=== PATIENT | male | born 1955 | race American Indian/Alaskan Native ===

== ENCOUNTER 2017-12-11 18:08 | Emergency (ER) | payer MEDICARE ==
[2017-12-11 19:23] LABS: Hematocrit 45.2 % (35.5-45.6); Hemoglobin 14.7 gm/dl (11.8-15.2); Mean Corpuscular HGB Conc 33 % (32-34); Mean Corpuscular Hemoglobin 29 pg (28-32); Mean Corpuscular Volume 88 fl (84-94); Platelet Count 216 K/mm3 (140-440); Red Blood Count 5.15 M/mm3 (3.65-5.03); Red Cell Distribution Width 13.9 % (13.2-15.2)
--- NOTE | 2017-12-11 19:32 | XRay Report ---
FINAL REPORT EXAM: XR CHEST ROUTINE 2V HISTORY: sob TECHNIQUE: Two view chest PA and lateral PRIORS: None. FINDINGS: Cardiac and mediastinal contours are unremarkable. No focal pulmonary infiltrate is identified. No pleural fluid collection seen. Pulmonary vasculature is unremarkable. IMPRESSION: Negative two-view chest
[2017-12-11 19:42] LABS: BUN/Creatinine Ratio 18; Blood Urea Nitrogen 16 mg/dL (9-20); Hemolysis Index 28
[2017-12-11 20:08] LABS: Bilirubin,Urine NEG (Negative); Blood,Urine NEG (Negative); Color,Urine Straw (Yellow); Hyaline Casts,Urine 1 /LPF; Mucus,Urine FEW /HPF; Protein,Urine <15 mg/dL mg/dL (Negative); Urobilinogen,Urine < 2.0 mg/dL (<2.0); WBC,Urine < 1.0 /HPF (0.0-6.0)
[2017-12-11] MEDS ORDERED: FIORICET PO ONE (21:03)
[2017-12-11] MEDS ORDERED: CATAPRES PO ONE (22:22)
[2017-12-11 22:32] VITALS: BP 137/90
--- NOTE | 2017-12-11 22:41 | Emergency Department Report ---
HPI - General Chief Complaint: Headache Time Seen by Provider: 12/11/17 20:45 - HPI HPI: 62 y.o presents to ER with frontal headache. Patient has had these headaches for months on and off. He described his headaches are sharp, without radiation , located in the front of his head. Denies any fever, neck pain or night sweats. He denies any exacerbating factors. He describes [id number] medications such as Tylenol extra strength as an alleviating factor. He has not taking such medicine in the past 24 hours. ED Past Medical Hx - Past Medical History Hx Hypertension: Yes Hx CVA: No Additional medical history: sleep apnea - Surgical History Hx Coronary Stent: Yes (2013) - Family History Family history: hypertension - Social History Smoking Status: Former Smoker Substance Use Type: Alcohol - Medications Home Medications: Home Medications Medication Instructions Recorded Confirmed Last Taken Type AtorvaSTATin [Lipitor] 20 mg PO QHS 12/11/17 12/11/17 Unknown History Butalb/Acetamin/Caff 50-325-40 1 tab PO Q8HR PRN #14 tablet 12/11/17 Unknown Rx [Fioricet] Furosemide [Lasix] 20 mg PO DAILY 12/11/17 12/11/17 Unknown History Klor-Con M20 1 tab PO DAILY 12/11/17 12/11/17 Unknown History Metoclopramide [Reglan TAB] 10 mg PO DAILY 12/11/17 12/11/17 Unknown History Metoprolol [Lopressor TAB] 50 mg PO DAILY 12/11/17 12/11/17 Unknown History SUMAtriptan SUCCINATE [Imitrex] 50 mg PO DAILY PRN #30 tablet 12/11/17 Unknown Rx ED Review of Systems ROS: Stated complaint: HEADACHE Other details as noted in HPI Comment: All other systems reviewed and negative Gastrointestinal: denies: nausea, vomiting Musculoskeletal: denies: back pain Neurological: headache Physical Exam - Physical Exam Vital Signs: Vital Signs 12/11/17 12/11/17 18:15 22:24 Temperature 98.3 F Pulse Rate 61 66 Respiratory 20 Rate Blood Pressure 189/108 137/90 O2 Sat by Pulse 98 95 Oximetry Physical Exam: GENERAL: Alert, well developed, in no acute distress. MENTAL STATUS: Judgment and insight appropriate for age. Oriented to time, place and person. No recent loss of memory. Affect appropriate for age. EYES: Pupils are equal and reactive to light. No hemorrhages or exudates. Extraocular muscles intact. EAR, NOSE AND THROAT: Oropharynx clean, mucous membranes moist. Ears and nose without masses, lesions or deformities. Tympanic membranes clear bilaterally. Trachea midline. No lymph node swelling or tenderness. RESPIRATORY: Clear to auscultation and percussion. No wheezing, rales or rhonchi. CARDIOVASCULAR: Heart sounds normal. No thrills. Regular rate and rhythm, no murmurs, rubs or gallops. GASTROINTESTINAL: Abdomen soft, nondistended. No pulsatile mass, no flank tenderness or suprapubic tenderness. No hepatosplenomegaly. NEUROLOGIC: Cranial nerves II-XII grossly intact. No focal neurological deficits. Deep tendon reflexes +2 bilaterally. Babinski negative. Moves all extremities spontaneously. Sensation intact bilaterally. SKIN: No rashes or lesions. No petechia. No purpura. Good turgor. No edema. MUSCULOSKELETAL: No cyanosis or clubbing. No gross deformities. Capable of free range of motion without pain or crepitation. No laxity, instability or dislocation. BONE: No misalignment, asymmetry, defect, tenderness or effusion. Capable of from of joint above and below bone. MUSCLE: No crepitation, defect, tenderness, masses or swellings. No loss of muscle tone or strength. LYMPHATIC: Palpation of neck reveals no swelling or tenderness of neck nodes. Palpation of groin reveals no swelling or tenderness of groin nodes. ED Course Vital Signs 12/11/17 12/11/17 18:15 22:24 Temperature 98.3 F Pulse Rate 61 66 Respiratory 20 Rate Blood Pressure 189/108 137/90 O2 Sat by Pulse 98 95 Oximetry - Reevaluation(s) Reevaluation #1: 12/11/17 22:39 Patient relief status post medication. Patient was advised to return to ED if fever developed neck pain develops or headache worsens. ED Medical Decision Making - Lab Data Result diagrams: 12/11/17 18:34 12/11/17 18:34 Critical care attestation.: If time is entered above; I have spent that time in minutes in the direct care of this critically ill patient, excluding procedure time. ED Disposition Clinical Impression: Chronic headaches Qualifiers: Headache type: tension-type Intractability: not intractable Qualified Code(s): G44.229 - Chronic tension-type headache, not intractable Disposition: DC-01 TO HOME OR SELFCARE Is pt being admited?: No Does the pt Need Aspirin: No Condition: Stable Instructions: Tension Headache (ED) Prescriptions: Butalb/Acetamin/Caff 50-325-40 [Fioricet] 1 tab PO Q8HR PRN #14 tablet PRN Reason: Headache SUMAtriptan SUCCINATE [Imitrex] 50 mg PO DAILY PRN #30 tablet PRN Reason: Headache Referrals: PRIMARY CARE, [Primary Care Provider] - 3-5 Days
== END 2017-12-11 22:45 | disposition home or self-care (01) ==
LOC: ED 18:08
DX: G44.229 Chronic tension-type headache, not intractable (principal); I10 Essential (primary) hypertension; Z87.891 Personal history of nicotine dependence; Z95.818 Presence of other cardiac implants and grafts
CPT/HCPCS: 36415; 71046; 80048; 81001; 83880; 85027; 93005; 93010